=== PATIENT | female | born 1960 | race Caucasian/White ===

== ENCOUNTER 2017-01-14 21:28 | Emergency (ER) | payer BC, MEDICAID, OTHER ==
[2017-01-14] MEDS ORDERED: Sodium Chloride 0.9% 1,000 ML IV SCH (22:30)
[2017-01-14] MEDS ORDERED: Albuterol/Ipratropium 3.0-0.5 MG/3 ML Neb Soln NEB PRN (22:35)
[2017-01-14] MEDS ORDERED: Aspirin 81 MG Tab.Chew PO STA (22:41)
--- NOTE | 2017-01-14 22:41 | EDM.PDOC ---
ED HPI GENERAL MEDICAL PROBLEM - General Chief Complaint: General Stated Complaint: SHORTNESS OF BREATH Time Seen by Provider: 01/14/17 21:30 Source of Information: Reports: Patient History Limitations: Reports: No Limitations - History of Present Illness INITIAL COMMENTS - FREE TEXT/NARRATIVE: Pt is a 56 year old female with PMH of COPD,HTN and diabetes who claims that she has always been short of breath for a long time even on present medication regime. apparently pt' has had mild cough for the past 1 wk. No fever or chills. Pt claims that over the weekend she has been feeling very tired and her shortness of breath has got worse. she feels short of breath at rest and exertion makes it worse. No chest pain. No back pain, no jaw pain, no epigastric discomfort. No nausea or vomiting. Pt's Spo2 is around 94% on room air and her Cardiac monitoring shows NSR at hert rates in 80s. - Related Data Allergies Allergy/AdvReac Type Severity Reaction Status Date / Time No Known Allergies Allergy Verified 06/01/14 08:12 Home Meds: Home Meds Ascorbic Acid [Vitamin C] 500 mg PO DAILY 06/01/14 [History] Budesonide/Formoterol [Symbicort 160-4.5 MCG] 10.2 gm INH BID 06/01/14 [History] Carvedilol [Carvedilol] 25 mg PO BID 06/01/14 [History] Cholecalciferol (Vitamin D3) [Vitamin D3] 1,000 unit PO DAILY 06/01/14 [History] Citalopram Hydrobromide [Citalopram HBr] 20 mg PO DAILY 06/01/14 [History] Diltiazem HCl [Diltiazem 24Hr Cd] 240 mg PO DAILY 06/01/14 [History] Losartan/Hydrochlorothiazide [Losartan-HCTZ 100-25 MG] 1 tab PO DAILY 06/01/14 [ History] Multivitamin [Multi Vitamin Daily] 1 tab PO DAILY 06/01/14 [History] Nabumetone [Relafen] 750 mg PO BID 06/01/14 [History] [place]-3 Fatty Acids/Fish Oil [Fish Oil 1,200 mg Softgel] 1 each PO DAILY [History] Omeprazole [Omeprazole] 20 mg PO DAILY 06/01/14 [History] Vitamin E Acid Succinate [Vitamin E] 400 unit PO DAILY 06/01/14 [History] metFORMIN HCl [Metformin HCl] 1,000 mg PO BID 06/01/14 [History] Past Medical History Cardiovascular History: Reports: Hypertension Respiratory History: Reports: COPD Gastrointestinal History: Reports: GERD Musculoskeletal History: Reports: RA Endocrine/Metabolic History: Reports: Diabetes, Type II - Infectious Disease History Infectious Disease History: Reports: Influenza - Past Surgical History Musculoskeletal Surgical History: Reports: Hip Replacement Social & Family History - Family History Family Medical History: Noncontributory - Tobacco Use Smoking Status *Q: Current Some Day Smoker Years of Tobacco use: 40 Packs/Tins Daily: 1 Second Hand Smoke Exposure: Yes - Alcohol Use Days Per Week of Alcohol Use: 0 - Recreational Drug Use Recreational Drug Use: No ED ROS GENERAL - Review of Systems Review Of Systems: See Below Constitutional: Reports: Chills, Weakness, Fatigue. Denies: Fever, Night Sweats , Diaphoresis HEENT: Denies: Rhinitis, Sinus Problem, Throat Pain, Throat Swelling, Vision Change Respiratory: Reports: Shortness of Breath, Cough. Denies: Wheezing, Pleuritic Chest Pain, Sputum Cardiovascular: Denies: Chest Pain, Lightheadedness GI/Abdominal: Denies: Abdominal Pain, Nausea, Vomiting : Denies: Dysuria, Flank Pain, Frequency Musculoskeletal: Denies: Joint Pain, Joint Swelling, Muscle Pain, Muscle Stiffness Skin: Denies: Cyanosis, Pruritis, Rash Neurological: Denies: Confusion, Dizziness, Headache, Numbness, Syncope, Tingling ED EXAM, GENERAL - Physical Exam Exam: See Below Exam Limited By: No Limitations General Appearance: Alert, WD/WN, No Apparent Distress Eye Exam: Bilateral Eye: EOMI, PERRL Ears: Normal External Exam, Normal Canal, Hearing Grossly Normal, Normal TMs Ear Exam: Bilateral Ear: Auricle Normal, Canal Normal, TM normal Nose: Normal Inspection, Normal Mucosa, No Blood Throat/Mouth: Normal Inspection, Normal Lips, Normal Teeth, Normal Gums, Normal Oropharynx, Normal Voice, No Airway Compromise Head: Atraumatic, Normocephalic Neck: Normal Inspection, Supple, Non-Tender, Full Range of Motion Respiratory/Chest: No Respiratory Distress, No Accessory Muscle Use, Chest Non- Tender, Decreased Breath Sounds, Rhonchi (dcatterred rhonchi over lung desai.) Cardiovascular: Normal Peripheral Pulses, Regular Rate, Rhythm, No Gallop, No JVD, No Murmur, No Rub GI/Abdominal: Normal Bowel Sounds, Soft, Non-Tender, No Organomegaly, No Distention, No Abnormal Bruit, No Mass Extremities: Pedal Edema (1+ pitting type) EKG INTERPRETATION EKG Date: 01/14/17 Rhythm: NSR Rate (Beats/Min): 89 [place]: Normal P-Wave: Present QRS: Normal ST-T: Normal QT: Normal Course - Vital Signs Text/Narrative:: Pt was placed on Oxygen at 2 litres per minute. Did order CBC, CMP, PT PTT, troponon and chest xray. Her only symptoms are fatigue and shortness of breath. her chest Xray appear normal. Her CBC show white count of 6.6 with hemoglobin of 13. Her CMP is normal other sodium of 130, with mild elevation of creat at 1.19. PT and PTT are normal. EKG is in NSR. Her troponin is elevated at 0.522. Apparently pt has COPD with shortness of breath all the time, she has been tired and her SOB has got worse over the past 3 days with non productive cough. Pneumonia was ruled out with her white count being normal and her chest xray remains unchanged from her previous one. Apparently her troponin is elevated with no EKG findings of MO. Pt has Non-STEMI. Pt's diagnosis was discussed with patient. She was started on IV heparin 5000 bolus followed by [id number] per/ hr. Also she was given plavix 300mg with 4 baby aspirins to chew and she already was on O2. Pt is hemodyanmically stable. Cardiac monitoring show rate in 80s. I did call [facility] and they are out of Telemetry and ICU beds. Hence did call [facility], discuss the patient with , hospitalist energy conservation specialist. He does agree to accept the patient. Per request,if we did do D- dimer and BNP. Her D-dimer is marginally elevated at 604 and her BNP is at 764 mildly elevated. Her d-dimer does not appear to meet PE criteria. i have not done Chest CT angiongram, as she ahs been started on heparin which should cover for the treatment, if she has PE. Apparently my first preference is her elevated Tropinin and further cardiac workup.. Pt will be transferred by [facility] by [facility] to [place]. Pt has been hemodyanmicallly stable althrough her emergency room care and I do not anticipate any deterioration in her condition during transfer. Further care as per . - Orders/Labs/Meds Orders: Active Orders 24 hr Category Date Time Status EKG Documentation Completion [RC] ASDIRECTED Care 01/14/17 21:39 Active Oxygen Therapy [RC] ASDIRECTED Care 01/14/17 22:41 Active RT Aerosol Therapy [RC] ASDIRECTED Care 01/14/17 22:37 Active Chest 2V [CR] Stat Exams 01/14/17 21:37 Taken Albuterol/Ipratropium [DuoNeb 3.0-0.5 MG/3 ML] Med 01/14/17 22:35 Active 3 ml NEB Q4H PRN Heparin Sodium/D5W [Heparin 25,000 Units in D5W 500 ML] Med 01/14/17 22:45 Active 25,000 units in 500 ml IV TITRATE Medication Orders Albuterol/Ipratropium (Duoneb 3.0-0.5 Mg/3 Ml) 3 ml NEB Q4H PRN PRN Reason: Shortness of Breath Heparin Sodium/Dextrose (Heparin 25,000 Units In D5w 500 Ml) 25,000 units in 500 mls @ 20 mls/hr IV TITRATE TI; 1,000 UNITS/HR PRN Reason: Protocol Labs: Laboratory Tests 01/14/17 01/14/17 01/14/17 Range/Units 21:50 21:50 21:55 WBC 6.6 D (4.0-11.0) K/uL RBC 4.48 (3.80-5.80) M/uL Hgb 13.1 (11.5-16.5) g/dL Hct 39.4 (37.0-47.0) % MCV 88 (76-96) fL MCH 29.2 (27.0-32.0) pg MCHC 33.2 (31.0-35.0) g/dL RDW 13.5 (11.0-16.0) % Plt Count 275 (150-500) K/uL MPV 9.5 (6.0-10.0) fL Neut % (Auto) 63.7 (45.0-70.0) % Lymph % (Auto) 18.5 L (20.0-40.0) % [place] % (Auto) 16.7 H (3.0-10.0) % Eos % (Auto) 0.6 L (1.0-5.0) % Baso % (Auto) 0.5 (0.0-0.5) % Neut # (Auto) 4.19 (2.00-7.50) K/uL Lymph # (Auto) 1.22 L (1.50-4.00) K/uL [place] # (Auto) 1.10 H (0.20-0.80) K/uL Eos # (Auto) 0.04 (0.04-0.40) K/uL Baso # (Auto) 0.03 (0.02-0.10) K/uL PT 10.3 (9.0-11.5) sec INR 1.0 (1.0-3.5) APTT 28.3 (27.0-35.0) SECONDS D-Dimer, Quantitative (0-400) ng/mL Sodium 130 L (136-145) mmol/L Potassium 3.8 (3.5-5.1) mmol/L Chloride 96 L (98-107) mmol/L Carbon Dioxide 24.4 (21.0-32.0) mmol/L Anion Gap 13.4 (5.0-15.0) mmol/L BUN 16 D (8-26) mg/dL Creatinine 1.19 H (0.55-1.02) mg/dL Est Cr Clr Drug Dosing TNP Estimated GFR (MDRD) 47 L (>60) MLS/MIN BUN/Creatinine Ratio 13.4 (6-25) Glucose 104 H (74-100) mg/dL Calcium 9.0 (8.5-10.1) mg/dL Total Bilirubin 0.6 (0.0-1.0) mg/dL AST 19 (15-37) U/L ALT 16 (12-78) U/L Alkaline Phosphatase 101 (46-116) U/L Troponin I 0.522 H* D (0.000-0.060) ng/mL B-Natriuretic Peptide (0-125) pg/mL Total Protein 8.0 (6.4-8.2) g/dL Albumin 3.3 L (3.4-5.0) g/dL Globulin 4.7 H (2.2-4.2) g/dL Albumin/Globulin Ratio 0.7 L (0.8-2.0) 01/14/17 01/14/17 Range/Units 21:55 21:55 WBC (4.0-11.0) K/uL RBC (3.80-5.80) M/uL Hgb (11.5-16.5) g/dL Hct (37.0-47.0) % MCV (76-96) fL MCH (27.0-32.0) pg MCHC (31.0-35.0) g/dL RDW (11.0-16.0) % Plt Count (150-500) K/uL MPV (6.0-10.0) fL Neut % (Auto) (45.0-70.0) % Lymph % (Auto) (20.0-40.0) % [place] % (Auto) (3.0-10.0) % Eos % (Auto) (1.0-5.0) % Baso % (Auto) (0.0-0.5) % Neut # (Auto) (2.00-7.50) K/uL Lymph # (Auto) (1.50-4.00) K/uL [place] # (Auto) (0.20-0.80) K/uL Eos # (Auto) (0.04-0.40) K/uL Baso # (Auto) (0.02-0.10) K/uL PT (9.0-11.5) sec INR (1.0-3.5) APTT (27.0-35.0) SECONDS D-Dimer, Quantitative 604 H (0-400) ng/mL Sodium (136-145) mmol/L Potassium (3.5-5.1) mmol/L Chloride (98-107) mmol/L Carbon Dioxide (21.0-32.0) mmol/L Anion Gap (5.0-15.0) mmol/L BUN (8-26) mg/dL Creatinine (0.55-1.02) mg/dL Est Cr Clr Drug Dosing Estimated GFR (MDRD) (>60) MLS/MIN BUN/Creatinine Ratio (6-25) Glucose (74-100) mg/dL Calcium (8.5-10.1) mg/dL Total Bilirubin (0.0-1.0) mg/dL AST (15-37) U/L ALT (12-78) U/L Alkaline Phosphatase (46-116) U/L Troponin I (0.000-0.060) ng/mL B-Natriuretic Peptide 764 H D (0-125) pg/mL Total Protein (6.4-8.2) g/dL Albumin (3.4-5.0) g/dL Globulin (2.2-4.2) g/dL Albumin/Globulin Ratio (0.8-2.0) Meds: Medications Generic Name Dose Route Start Last Admin Trade Name Freq PRN Reason Stop Dose Admin Albuterol/Ipratropium 3 ml 01/14/17 22:35 Duoneb 3.0-0.5 Mg/3 Ml NEB Q4H PRN Shortness of Breath Heparin Sodium/Dextrose 25,000 units in 500 mls @ 20 mls/hr 01/14/17 22:45 Heparin 25,000 Units In D5w 500 Ml IV TITRATE TI Protocol 1,000 UNITS/HR Discontinued Medications Generic Name Dose Route Start Last Admin Trade Name Freq PRN Reason Stop Dose Admin Aspirin 81 mg 01/14/17 22:41 Aspirin PO 01/14/17 22:42 DAILY STA Clopidogrel Bisulfate 300 mg 01/14/17 22:43 Plavix PO 01/14/17 22:44 ONETIME ONE Heparin Sodium (Porcine) 5,000 units 01/14/17 22:49 Heparin Sodium IVPUSH 01/14/17 22:50 ONETIME ONE Departure - Departure Time of Disposition: 00:30 Disposition: DC/Tfer to Acute Hospital 02 Condition: Fair Clinical Impression: Non-STEMI (non-ST elevated myocardial infarction) - Discharge Information Forms: ED Department Discharge - Problem List & Annotations (1) Non-STEMI (non-ST elevated myocardial infarction) SNOMED Code(s): 709714739 Code(s): I21.4 - NON-ST ELEVATION (NSTEMI) MYOCARDIAL INFARCTION Status: Acute - Problem List Review Problem List Initiated/Reviewed/Updated: Yes - My Orders Last 24 Hours: My Active Orders 01/14/17 21:37 Chest 2V [CR] Stat 01/14/17 21:39 EKG Documentation Completion [RC] ASDIRECTED 01/14/17 22:35 Albuterol/Ipratropium [DuoNeb 3.0-0.5 MG/3 ML] 3 ml NEB Q4H PRN 01/14/17 22:37 RT Aerosol Therapy [RC] ASDIRECTED 01/14/17 22:41 Oxygen Therapy [RC] ASDIRECTED 01/14/17 22:45 Heparin Sodium/D5W [Heparin 25,000 Units in D5W 500 ML] 25,000 units in 500 ml IV TITRATE - Assessment/Plan Last 24 Hours: My Active Orders 01/14/17 21:37 Chest 2V [CR] Stat 01/14/17 21:39 EKG Documentation Completion [RC] ASDIRECTED 01/14/17 22:35 Albuterol/Ipratropium [DuoNeb 3.0-0.5 MG/3 ML] 3 ml NEB Q4H PRN 01/14/17 22:37 RT Aerosol Therapy [RC] ASDIRECTED 01/14/17 22:41 Oxygen Therapy [RC] ASDIRECTED 01/14/17 22:45 Heparin Sodium/D5W [Heparin 25,000 Units in D5W 500 ML] 25,000 units in 500 ml IV TITRATE Assessment:: NonSTEMI Plan: Pt was placed on Oxygen at 2 litres per minute. Did order CBC, CMP, PT PTT, troponon and chest xray. Her only symptoms are fatigue and shortness of breath. her chest Xray appear normal. Her CBC show white count of 6.6 with hemoglobin of 13. Her CMP is normal other sodium of 130, with mild elevation of creat at 1.19. PT and PTT are normal. EKG is in NSR. Her troponin is elevated at 0.522. Apparently pt has COPD with shortness of breath all the time, she has been tired and her SOB has got worse over the past 3 days with non productive cough. Pneumonia was ruled out with her white count being normal and her chest xray remains unchanged from her previous one. Apparently her troponin is elevated with no EKG findings of MO. Pt has Non-STEMI. Pt's diagnosis was discussed with patient. She was started on IV heparin 5000 bolus [place] [id number] per/ hr. Also she was given plavix 300mg with 4 baby aspirins to chew and she already was on O2. Pt is hemodyanmically stable. Cardiac monitoring show rate in 80s. I did call [facility] and they are out of Telemetry and ICU beds. Hence did call [facility], discuss the patient with , hospitalist energy conservation specialist. He does agree to accept the patient. Per request,if we did do D- dimer and BNP. Her D-dimer is marginally elevated at 604 and her BNP is at 764 mildly elevated. Her d-dimer does not appear to meet PE criteria. i have not done Chest CT angiongram, as she ahs been started on heparin which should cover for the treatment, if she has PE. Apparently my first preference is her elevated Tropinin and further cardiac workup.. Pt will be transferred [facility] to [place]. Pt has been hemodyanmicallly stable althrough her emergency room care and I do not anticipate any deterioration in her condition during transfer. Further care as per .
[2017-01-14] MEDS ORDERED: Clopidogrel 75 MG Tab PO ONE (22:43)
[2017-01-14] MEDS ORDERED: Heparin Sodium/D5W 25,000 UNITS/500 ML BAG IV SCH (22:45)
[2017-01-14] MEDS ORDERED: Heparin Sodium 5,000 UNITS/0.5 ML Syringe IVPUSH ONE (22:49)
[2017-01-15 05:05] VITALS: BP 166/98
--- NOTE | 2017-01-15 07:14 | CR ---
DATE OF SERVICE: 01/14/17 CLINICAL DATA: cough and SOB PA AND LATERAL CHEST: Comparison is made to a prior exam dated 08/09/15. The heart size is within normal limits. There are mild atelectatic changes in both lower lungs. The lungs are otherwise clear. No pneumothorax. No pleural effusions. [id number] MTDD
== END 2017-01-15 00:25 ==
LOC: LB.ED 21:28
DX: I21.4 Non-ST elevation (NSTEMI) myocardial infarction (principal); J44.9 Chronic obstructive pulmonary disease, unspecified; I10 Essential (primary) hypertension; E11.9 Type 2 diabetes mellitus without complications; K21.9 Gastro-esophageal reflux disease without esophagitis; M06.9 Rheumatoid arthritis, unspecified; F17.210 Nicotine dependence, cigarettes, uncomplicated; Z79.899 Other long term (current) drug therapy; Z79.84 Long term (current) use of oral hypoglycemic drugs
CPT/HCPCS: 36415; 71020; 80053; 83880; 84484; 85025; 85379; 85610; 85730; 93005; 96374; 99285; A9270; J1644; J7040; J7620

== ENCOUNTER 2020-08-18 04:31 | Emergency (ER) | payer BC ==
--- NOTE | 2020-08-18 06:21 | EDM.PDOC ---
ED HPI GENERAL MEDICAL PROBLEM - General Chief Complaint: Abdominal Pain Stated Complaint: unable to void or have BM Time Seen by Provider: 08/18/20 05:20 Source of Information: Reports: Patient History Limitations: Reports: No Limitations - History of Present Illness INITIAL COMMENTS - FREE TEXT/NARRATIVE: 60 year female Known diabetic & HTN came to ED for constipation x 6 days gradual in onset -she is als c/o pain in perianal area -and pain in lower abdominal area -pain is dull ache & crampy -located in lower abd -Nothing makes pain better or worse - she also feels nauseated . denies fever,N/V headache ,chest pain & cough ,shortness of breath ,wheezing Onset: Gradual Duration: Day(s): (4) Location: Reports: Abdomen Quality: Reports: Dull Severity: Moderate - Related Data Allergies Allergy/AdvReac Type Severity Reaction Status Date / Time No Known Allergies Allergy Verified 01/15/17 04:50 Home Meds: Home Meds Ascorbic Acid [Vitamin C] 500 mg PO DAILY 06/01/14 [History] Budesonide/Formoterol [Symbicort 160-4.5 MCG] 10.2 gm INH BID 06/01/14 [History] Cholecalciferol (Vitamin D3) [Vitamin D3] 1,000 unit PO DAILY 06/01/14 [History] Citalopram Hydrobromide [Citalopram HBr] 40 mg PO DAILY 06/01/14 [History] Diltiazem HCl [Diltiazem 24Hr Cd] 360 mg PO DAILY 06/01/14 [History] Losartan/Hydrochlorothiazide [Losartan-HCTZ 100-25 MG] 1 tab PO DAILY 06/01/14 [History] Multivitamin [Multi Vitamin Daily] 1 tab PO DAILY 06/01/14 [History] Nabumetone [Relafen] 750 mg PO BID 06/01/14 [History] [place]-3 Fatty Acids/Fish Oil [Fish Oil 1,200 mg Softgel] 1 each PO DAILY 06/01/14 [History] Omeprazole 20 mg PO DAILY 06/01/14 [History] Vitamin E Acid Succinate [Vitamin E] 400 unit PO DAILY 06/01/14 [History] carvediloL [Carvedilol] 25 mg PO BID 06/01/14 [History] metFORMIN HCl [Metformin HCl] 1,000 mg PO BID 06/01/14 [History] Albuterol Sulfate [Proair Hfa] 1 puff IH Q4HR PRN 01/15/17 [History] Albuterol/Ipratropium [DuoNeb 3.0-0.5 MG/3 ML] 3 ml INH Q4HR 01/15/17 [History] Multivitamin [Daily Multiple Vitamin] 1 tab PO DAILY 01/15/17 [History] Spironolactone [Aldactone] 25 mg PO DAILY 01/15/17 [History] Past Medical History HEENT History: Reports: Impaired Vision Cardiovascular History: Reports: Hypertension, Pulmonary Hypertension Respiratory History: Reports: COPD Gastrointestinal History: Reports: GERD [employer] 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: Musculoskeletal History: Reports: RA Psychiatric History: Reports: Depression Endocrine/Metabolic History: Reports: Diabetes, Type II - Infectious Disease History Infectious Disease History: Reports: Influenza - Past Surgical History Musculoskeletal Surgical History: Reports: Hip Replacement Social & Family History - Family History Family Medical History: No Pertinent Family History - Tobacco Use Years of Tobacco use: 40 Packs/Tins Daily: 1 - Caffeine Use Caffeine Use: Reports: Coffee ED ROS GENERAL - Review of Systems Review Of Systems: See Below Constitutional: Reports: No Symptoms HEENT: Reports: No Symptoms Respiratory: Reports: No Symptoms, Shortness of Breath, Wheezing, Cough, Sputum Cardiovascular: Reports: No Symptoms Endocrine: Reports: No Symptoms GI/Abdominal: Reports: Abdominal Pain, Constipation, Distension Musculoskeletal: Reports: No Symptoms Skin: Reports: No Symptoms Neurological: Reports: No Symptoms Hematologic/Lymphatic: Reports: No Symptoms ED EXAM, GENERAL - Physical Exam Exam: See Below Exam Limited By: No Limitations General Appearance: Alert, Anxious, Lethargic, Moderate Distress Head: Atraumatic, Normocephalic Neck: Normal Inspection Respiratory/Chest: No Respiratory Distress, Lungs Clear, Normal Breath Sounds, No Accessory Muscle Use, Chest Non-Tender Cardiovascular: Normal Peripheral Pulses, Regular Rate, Rhythm, No Edema, No Gallop, No JVD, No Murmur, No Rub GI/Abdominal: Normal Bowel Sounds, Soft, Non-Tender, No Organomegaly, No Distention, No Abnormal Bruit, No Mass, Pelvis Stable (bowel sound present ) Rectal (Female) Exam: Normal Rectal Tone, Bloody Stool, Fecal Impaction, Heme - Stool, Hemorrhoids (Loose stools were coming out ) Neurological: Alert, Oriented Course - Vital Signs Text/Narrative:: Patient denies labs Vitals monitored Per rectal exam,shows external hemorrhoids normal external tone stool was impacted in lower rectum I did manual evacuations -I remove the hard stools Then started water soap enema - I give her 700ml per rectally Patient wants to go to wash room -she passed a big bowl movement . She also passed urine She was much more comfortable after having BM she denies blood work & wants to go home Last Recorded V/S: Last Vital Signs Temp 98.4 F 08/18/20 04:39 Pulse 87 08/18/20 04:39 Resp 20 08/18/20 04:39 BP 180/92 H 08/18/20 04:39 Pulse Ox 98 08/18/20 04:39 Departure - Departure Time of Disposition: 06:00 Disposition: Home, Self-Care 01 Condition: Good Clinical Impression: Abdominal pain - Discharge Information *PRESCRIPTION DRUG MONITORING PROGRAM REVIEWED*: No *COPY OF PRESCRIPTION DRUG MONITORING REPORT IN PATIENT SALIMA: No Instructions: High-Fiber Diet, Abdominal Pain During , [id number], Constipation, Adult Referrals: PCP,None [Primary Care Provider] - Forms: ED Department Discharge Additional Instructions: Follow up with your MD as needed Sepsis Event Note (ED) - Focused Exam Vital Signs: Vital Signs Temp Pulse Resp BP Pulse Ox 08/18/20 04:39 98.4 F 87 20 180/92 H 98 - Problem List & Annotations (1) Constipation SNOMED Code(s): 42932123 Code(s): K59.00 - CONSTIPATION, UNSPECIFIED Status: Acute Priority: Medium Onset Date: ~08/18/20 Qualifiers: Constipation type: chronic idiopathic constipation Qualified Code(s): K59.04 - Chronic idiopathic constipation (2) Abdominal pain SNOMED Code(s): 64148355 Code(s): R10.9 - UNSPECIFIED ABDOMINAL PAIN Status: Acute
[2020-08-18 07:15] VITALS: BP 180/92; PULSE 87
== END 2020-08-18 06:15 | disposition home or self-care (01) ==
LOC: LB.ED 04:31
DX: K64.4 Residual hemorrhoidal skin tags (principal); I10 Essential (primary) hypertension; J44.9 Chronic obstructive pulmonary disease, unspecified; K21.9 Gastro-esophageal reflux disease without esophagitis; E11.9 Type 2 diabetes mellitus without complications; Z72.0 Tobacco use; Z79.84 Long term (current) use of oral hypoglycemic drugs; Z79.899 Other long term (current) drug therapy
CPT/HCPCS: 99283

== ENCOUNTER 2023-09-05 18:35 | Emergency (ER) | payer MEDICARE ==
[2023-09-05 19:20] LABS: BASOPHILS ABSOLUTE AUTO 0.02 K/uL (0.02-0.10); BASOPHILS PERCENT AUTO 0.2 % (0.0-0.5); EOSINOPHILS ABSOLUTE AUTO 0.05 K/uL (0.04-0.40); EOSINOPHILS PERCENT AUTO 0.4 % (1.0-5.0); HEMATOCRIT 40.9 % (37.0-47.0); HEMOGLOBIN 13.7 g/dL (11.5-16.5); LYMPHOCYTES ABSOLUTE AUTO 0.95 K/uL (1.50-4.00); LYMPHOCYTES PERCENT AUTO 8.1 % (20.0-40.0); MEAN CORPUSCULAR HEMOGLOBIN 31.5 pg (27.0-32.0); MEAN CORPUSCULAR HGB CONC 33.5 g/dL (31.0-35.0); MEAN CORPUSCULAR VOLUME 94 fL (76-96); MEAN PLATELET VOLUME 9.7 fL (6.0-10.0); MONOCYTES ABSOLUTE AUTO 1.31 K/uL (0.20-0.80); MONOCYTES PERCENT AUTO 11.2 % (3.0-10.0); NEUTROPHILS ABSOLUTE AUTO 9.37 K/uL (2.00-7.50); NEUTROPHILS PERCENT AUTO 80.1 % (45.0-70.0); PLATELET COUNT,PLT 281 K/uL (150-500); RED BLOOD CELL COUNT 4.35 M/uL (3.80-5.80); RED CELL DISTRIBUTION WIDTH 13.6 % (11.0-16.0); WHITE BLOOD CELL COUNT,WBC 11.7 K/uL (4.0-11.0)
[2023-09-05] MEDS: methylPREDNISolone Sodium Succinate 125 MG/2 ML SDV IVPUSH ONE (19:32)
[2023-09-05] MEDS: Albuterol/Ipratropium 3.0-0.5 MG/3 ML Neb Soln NEB ONE (19:32)
[2023-09-05 19:41] LABS: A/G RATIO 0.8 (0.8-2.0); ALBUMIN 3.5 g/dL (3.4-5.0); ANION GAP 17.1 mmol/L (5.0-15.0); BILIRUBIN TOTAL 0.7 mg/dL (0.0-1.0); BUN/CREATININE RATIO 23.3 (6-25); CALCIUM 8.8 mg/dL (8.5-10.1); CARBON DIOXIDE,CO2 25.5 mmol/L (21.0-32.0); CREATININE 1.33 mg/dL (0.55-1.02); EST CRCL DRUG DOSING (CG) 37.95 mL/min; POTASSIUM,K 4.6 mmol/L (3.5-5.1)
[2023-09-05 19:43] LABS: INFLUENZA A NAA NEGATIVE (NEGATIVE); INFLUENZA B NAA NEGATIVE (NEGATIVE); RESPIRATORY SYNCYTIAL VIR NAA NEGATIVE (NEGATIVE)
[2023-09-05 19:45] LABS: CORONAVIRUS COVID-19 NAA NEGATIVE (NEGATIVE)
[2023-09-05 20:27] VITALS: BP 143/123; PULSE 84
[2023-09-05] MEDS ORDERED: Azithromycin 250 MG Tab ONE (21:00)
== END 2023-09-05 20:15 | disposition home or self-care (01) ==
LOC: LB.ED 18:35
DX: J44.0 Chronic obstructive pulmonary disease with (acute) lower respiratory infection (principal); I50.9 Heart failure, unspecified; I11.0 Hypertensive heart disease with heart failure; E11.9 Type 2 diabetes mellitus without complications; K21.9 Gastro-esophageal reflux disease without esophagitis; F17.210 Nicotine dependence, cigarettes, uncomplicated; Z79.2 Long term (current) use of antibiotics; Z79.899 Other long term (current) drug therapy
CPT/HCPCS: 0241U; 36415; 71045; 80053; 83605; 83880; 85025; 94640; 96374; 99285; A9270; J2930; J7620

== ENCOUNTER 2023-11-28 14:37 | Emergency (ER) | payer MEDICARE ==
[2023-11-28 15:46] LABS: A/G RATIO 0.7 (0.8-2.0); ALBUMIN 3.1 g/dL (3.4-5.0); ANION GAP 11.9 mmol/L (5.0-15.0); BILIRUBIN TOTAL 0.5 mg/dL (0.0-1.0); CALCIUM 8.4 mg/dL (8.5-10.1); CARBON DIOXIDE,CO2 28.1 mmol/L (21.0-32.0); CREATININE 2.48 mg/dL (0.55-1.02); EST CRCL DRUG DOSING (CG) 20.35 mL/min; MAGNESIUM 1.8 mg/dL (1.8-2.4); PHOSPHORUS 4.1 mg/dL (2.5-4.9); PROTEIN TOTAL,TP 7.4 g/dL (6.4-8.2)
[2023-11-28] MEDS: Sodium Polystyrene Sulfonate 15 GM/60 ML Susp 60 ML Bot PO ONE (15:59)
[2023-11-28] MEDS: Albuterol/Ipratropium 3.0-0.5 MG/3 ML Neb Soln NEB SCH (15:59)
[2023-11-28] MEDS: Sodium Chloride 0.9% 1,000 ML IV SCH ×2 (16:00→19:16)
[2023-11-28 17:34] LABS: HEMOGLOBIN A1C 6.7 % (< 5.7)
[2023-11-28 18:38] LABS: BUN/CREATININE RATIO 24.4 (6-25); CALCIUM 8.1 mg/dL (8.5-10.1); CARBON DIOXIDE,CO2 29.4 mmol/L (21.0-32.0); CREATININE 2.09 mg/dL (0.55-1.02); EST CRCL DRUG DOSING (CG) 24.15 mL/min; POTASSIUM,K 5.4 mmol/L (3.5-5.1)
[2023-11-28] MEDS ORDERED: Sodium Polystyrene Sulfonate 15 GM/60 ML Susp 60 ML Bot PO ONE (19:14)
[2023-11-28 20:31] VITALS: BP 185/95; PULSE 71
== END 2023-11-28 20:20 | disposition home or self-care (01) ==
LOC: LB.ED 14:37
DX: E87.5 Hyperkalemia (principal); N17.9 Acute kidney failure, unspecified; I12.9 Hypertensive chronic kidney disease with stage 1 through stage 4 chronic kidney disease, or unspecified chronic kidney disease; N18.30 Chronic kidney disease, stage 3 unspecified; E11.65 Type 2 diabetes mellitus with hyperglycemia; J44.9 Chronic obstructive pulmonary disease, unspecified; E66.9 Obesity, unspecified; Z68.34 Body mass index [BMI] 34.0-34.9, adult; Z79.82 Long term (current) use of aspirin; Z79.899 Other long term (current) drug therapy; Z79.51 Long term (current) use of inhaled steroids; Z79.02 Long term (current) use of antithrombotics/antiplatelets; Z79.84 Long term (current) use of oral hypoglycemic drugs
CPT/HCPCS: 36415; 80048; 80053; 83036; 83735; 84100; 93005; 94640; 96360; 96361; 99283-25; A9270-GY; J7030; J7620